=== PATIENT | female | born 1970 | race Native Hawaiian/Other Pacific Islander ===

== ENCOUNTER 2020-05-16 10:30 | Outpatient (CLI) | payer OTHER ==
[2020-05-16 11:24] LABS: PLATELET COUNT 378 K/uL (152-353)
[2020-05-16 11:42] LABS: POTASSIUM 3.9 mmol/L (3.6-5.2)
== END 2020-05-16 22:35 | disposition home or self-care (01) ==
LOC: LAB 10:30
PROVIDERS: ATTEND Nurse Practitioner Family
DX: I10 Essential (primary) hypertension (principal); E11.9 Type 2 diabetes mellitus without complications; R53.83 Other fatigue; R53.81 Other malaise; R63.5 Abnormal weight gain; N95.1 Menopausal and female climacteric states
CPT/HCPCS: 80053; 80061; 82670; 83001; 83036; 84403; 84439; 84443; 84481; 85027

== ENCOUNTER 2022-07-14 08:19 | Emergency (ER) | payer BC ==
[~2022-07-14] VITALS: Ht 160 cm; Wt 66.2 kg
[2022-07-14 08:25] VITALS: TEMP 98.5
[2022-07-14 08:59] LABS: PLATELET COUNT 315 K/uL (152-353)
[2022-07-14 09:11] LABS: POTASSIUM 3.7 mmol/L (3.6-5.2)
[2022-07-14 12:07] VITALS: BP 153/86
== END 2022-07-14 12:07 | disposition home or self-care (01) ==
LOC: ED 08:19
PROVIDERS: Family Medicine
DX: N39.0 Urinary tract infection, site not specified (principal); N32.89 Other specified disorders of bladder; E87.1 Hypo-osmolality and hyponatremia; K57.32 Diverticulitis of large intestine without perforation or abscess without bleeding
CPT/HCPCS: 36415; 80053; 81002; 82150; 85027; 87086; 87088; 96360; 99284; Q9963